=== PATIENT | female | born 1975 | race Caucasian/White ===

== ENCOUNTER 2016-09-21 09:26 | Emergency (ER) | payer MEDICARE, OTHER ==
[~2016-09-21] VITALS: Ht 172.7 cm; Wt 81.8 kg
[~2016-09-21 09:26] MED LIST: ALBU0.086 INH; ARIP1TAB5 PO; VENTAER INH
[2016-09-21 09:27] VITALS: BP 116/67; PULSE 76; RESP 20; TEMP 97; O2SAT 98
[2016-09-21] MEDS ORDERED: FERR1TAB36 PO (09:53)
[2016-09-21] MEDS ORDERED: VENTAER INH (10:34)
--- NOTE | 2016-09-21 10:34 | PD ---
HPI Chief Complaint: Respiratory Symptoms Time Seen by Provider: 10:29 Travel History International Travel<30 days: No Contact w/Intl Traveler<30days: No Traveled to known affect area: No History of Present Illness HPI Patient is a 40-year-old female presenting to emergency department for evaluation of a cough and nasal congestion. Patient states her symptoms have been ongoing for about 2 weeks. She denies any fever, chills, nausea, vomiting , chest pain or shortness of breath. She reports a dry cough. She states that she is out of her albuterol inhaler. Her primary doctor is Dr. Haji, she has not attempted to call him for prescription refill or to be evaluated in the office. She has no other complaints today. PFSH Past Medical History Anemia: Yes Bipolar Disorder: Yes Depression: Yes Cardiovascular Problems: Yes Diminished Hearing: No Endocrine: No Genitourinary: No Immune Disorder: No Musculoskeletal: No Psychiatric: Yes (schizoaffective) Reproductive: Yes (STATES OVARIAN CYSTS) Respiratory: Yes (ASTHMA) Schizophrenia: Yes Seizures: No ?: Not LMP: APPROX. 09/07/16 : 9 Para: 8 Miscarriage: 1 Tubal Ligation: Yes Past Surgical History Section: Yes (X 2 ) Gynecologic Surgery: Yes ( X 2) Other Surgery: Yes (I & D RIGHT LEG) Social History Alcohol Use: No Tobacco Use: No Substance Use: No Allergies-Medications (Allergen,Severity, Reaction): Coded Allergies: Bactrim (Verified Allergy, Severe, chest tightness, 09/21/16) Geodon (Verified Allergy, Severe, chest tightness, 09/21/16) Penicillin (Verified Allergy, Severe, chest tightness, 09/21/16) Sodium Hypochlorite (Unverified Allergy, Severe, 09/21/16) Wasp (Verified Allergy, Severe, chest tightness, 09/21/16) Keflex (Unverified Allergy, Intermediate, Rash, 09/21/16) Tomato (Verified Adverse Reaction, Mild, sores, 09/21/16) *MDRO Multi-Drug Resistant Organism (Unverified Adverse Reaction, Unknown , 09/21/16) ESBL+ E. coli urine 11/19/14. Reported Meds & Prescriptions Reported Meds & Active Scripts Active Proventil Ud 0.083% (2.5 Mg/3 Ml) (Albuterol Sulfate) 2.5 Mg/3 Ml Inha 2.5 Mg INH Q4 Reported Iron (Ferrous Sulfate) 325 Mg Tab Unknown Dose PO DAILY Take Review of Systems Except as stated in HPI: all other systems reviewed are Neg General / Constitutional: No: Fever, Chills HENT: Positive: Rhinitis, Rhinorrhea, Congestion, No: Headaches, Lightheadedness Cardiovascular: No: Chest Pain or Discomfort Respiratory: Positive: Cough, No: Shortness of Breath, Wheezing Gastrointestinal: No: Nausea, Vomiting, Diarrhea, Abdominal Pain Physical Exam Narrative GENERAL: Well-nourished, well-developed patient. SKIN: Warm and dry. HEAD: Normocephalic. EYES: No scleral icterus. No injection or drainage. ENT: Mucosa pink and moist. No erythema or exudates. No uvular edema. No uvular , palatal, or tonsillar deviation. Airway patent. Nasal turbinates appear normal without nasal blood, purulent drainage or septal hematoma. Posterior pharynx is cobblestone appearance. NECK: Supple, trachea midline. No JVD or lymphadenopathy. CARDIOVASCULAR: Regular rate and rhythm without murmurs, gallops, or rubs. RESPIRATORY: Breath sounds equal bilaterally. No accessory muscle use. No wheezing, rhonchi, rales noted. GASTROINTESTINAL: Abdomen soft, non-tender, nondistended. MUSCULOSKELETAL: No cyanosis, or edema. BACK: Nontender without obvious deformity. No CVA tenderness. Data Data Last Documented VS Vital Signs Date Time Temp Pulse Resp B/P Pulse Ox O2 Delivery O2 Flow Rate FiO2 09/21/16 09:27 97.0 76 20 116/67 98 Room Air [facility] Medical Decision Making Medical Screen Exam Complete: Yes Emergency Medical Condition: Yes Interpretation(s) Vital Signs Date Time Temp Pulse Resp B/P Pulse Ox O2 Delivery O2 Flow Rate FiO2 09/21/16 09:27 97.0 76 20 116/67 98 Room Air Differential Diagnosis Asthma exacerbation versus bronchitis versus pneumonia versus postnasal drip Narrative Course Patient is a 40-year-old female presenting to the emergency room evaluation of cough and nasal congestion. Lungs are clear to auscultation bilaterally, there are no wheezes, rhonchi, rales noted. Patient is afebrile, her vital signs are stable. Cough is likely secondary to postnasal drip due to nasal congestion. Patient will be provided with a prescription refill for her albuterol inhaler, she was encouraged to obtain [id number] nasal decongestant and use as directed and as needed. She was encouraged to follow-up with her primary doctor. Additionally patient can come back to the emergency department for any new or worsening symptoms. Patient verbalized understanding of these instructions. Patient is stable for discharge. Diagnosis Primary Impression: Upper respiratory infection Qualified Code: J06.9 - Upper respiratory tract infection, unspecified type Additional Impression: Encounter for medication refill Referrals: Primary Care Physician Patient Instructions: Asthma (ED), General Instructions, Upper Respiratory Infection (ED) Additional Instructions: Follow-up with her primary doctor Return to emergency department for any new or worsening symptoms [id number] nasal decongestant and use as directed and as needed Med/Other Pt SpecificInfo: Prescription(s) given Scripts Albuterol 18 GM Inh (Ventolin Hfa 18 GM Inh)90 Mcg/Act Aer2 Puff INH Q4-6H PRN ( SHORTNESS OF BREATH) #1 INHALER Ref 0 Prov:April Recio 09/21/16 Disposition: 01 DISCHARGE HOME Condition: Stable April Recio Sep 21, 2016 10:34
== END 2016-09-21 10:46 | disposition home or self-care (01) ==
LOC: NEPB 09:26
DX: J06.9 Acute upper respiratory infection, unspecified (principal); Z76.0 Encounter for issue of repeat prescription
CPT/HCPCS: 99283

== ENCOUNTER 2017-01-21 20:38 | Emergency (ER) | payer OTHER ==
[~2017-01-21] VITALS: Ht 172.7 cm; Wt 100.0 kg
[~2017-01-21 20:38] MED LIST changes: -ARIP1TAB5 PO; +FERR1TAB36 PO
[2017-01-21 20:40] VITALS: BP 132/70; PULSE 107; RESP 16; TEMP 98.2; O2SAT 100
[2017-01-21] MEDS ORDERED: ARIP1TAB7 PO (20:47)
--- NOTE | 2017-01-21 21:17 | PD ---
HPI . Epigastric abdominal pain Chief Complaint: Abdominal Pain Time Seen by Provider: 21:16 Travel History International Travel<30 days: No Contact w/Intl Traveler<30days: No Traveled to known affect area: No History of Present Illness HPI 41-year-old female with no significant past medical history other than iron deficiency anemia and bipolar disorder here with complaints of epigastric abdominal pain with diarrhea for one day. Patient says that she suddenly noticed some pain in her epigastric area and also noticed that it was distended. She reiterates that she's had her tubes tied and burned and that there should be no chance of . She tells me the pain is intermittent and at its peak is 6/10 without any radiation elsewhere. She does not presently have the pain. She denies any nausea or vomiting. She denies a constipation. She had 3 bowel movements today and tells me that they were semi- watery. She also reports some dysuria and toes me she's been urinating more than usual. This has been going on for the past 2 days. She is accompanied by her significant other. PFSH Past Medical History Anemia: Yes Bipolar Disorder: Yes Depression: Yes Cardiovascular Problems: Yes Diminished Hearing: No Endocrine: No Genitourinary: No Immune Disorder: No Musculoskeletal: No Psychiatric: Yes (schizoaffective) Reproductive: Yes (STATES OVARIAN CYSTS) Respiratory: Yes (ASTHMA) Schizophrenia: Yes Seizures: No ?: Not LMP: 01/10/17 : 9 Para: 8 Miscarriage: 1 Tubal Ligation: Yes Past Surgical History Section: Yes (X 2 ) Gynecologic Surgery: Yes ( X 2) Other Surgery: Yes (I & D RIGHT LEG) Social History Alcohol Use: No Tobacco Use: No Substance Use: No Allergies-Medications (Allergen,Severity, Reaction): Coded Allergies: Bactrim (Verified Allergy, Severe, chest tightness, 01/21/17) Geodon (Verified Allergy, Severe, chest tightness, 01/21/17) Penicillin (Verified Allergy, Severe, chest tightness, 01/21/17) Sodium Hypochlorite (Unverified Allergy, Severe, 01/21/17) Wasp (Verified Allergy, Severe, chest tightness, 01/21/17) Keflex (Unverified Allergy, Intermediate, Rash, 01/21/17) Tomato (Verified Adverse Reaction, Mild, sores, 01/21/17) *MDRO Multi-Drug Resistant Organism (Unverified Adverse Reaction, Unknown , 01/21/17) ESBL+ E. coli urine 11/19/14. Reported Meds & Prescriptions Reported Meds & Active Scripts Active Omeprazole 40 Mg Cap 40 Mg PO DAILY Reported Ferrous Sulfate DR (Ferrous Sulfate) 324 Mg Tabdr 324 Mg PO DAILY Abilify (Aripiprazole) 20 Mg Tab 20 Mg PO DAILY Review of Systems General / Constitutional: No: Fever Eyes: No: Visual changes HENT: No: Headaches Cardiovascular: No: Chest Pain or Discomfort Respiratory: No: Shortness of Breath Gastrointestinal: Positive: Diarrhea, Abdominal Pain, Other (distention ) Genitourinary: No: Dysuria Musculoskeletal: No: Pain Skin: No Rash Neurologic: No: Weakness Psychiatric: No: Depression Endocrine: No: Polydipsia Hematologic/Lymphatic: No: Easy Bruising Physical Exam Narrative GENERAL: AAO x 3, no acute distress, Well-nourished, well-developed patient. SKIN: Warm and dry. No visible rashes or bruising. HEAD: Normocephalic and atraumatic. EYES: No scleral icterus. No injection or drainage. EOM intact, PERRLA ENT: No nasal drainage noted. Mucous membranes pink. Airway patent. NECK: Supple, trachea midline. No JVD. CARDIOVASCULAR: Regular rate and rhythm without murmurs, gallops, or rubs. RESPIRATORY: Breath sounds equal bilaterally. No accessory muscle use. No rhonchi or rales. GASTROINTESTINAL: Abdomen soft, but distended. Normoactive bowel sounds. No rebound or guarding. There is tenderness in the epigastric area as well as the left upper quadrant. There is some tenderness in the right lower quadrant and suprapubic area. No flank pain present EXTREMITIES: No cyanosis or edema. Nontender upper and lower extremities. BACK: Nontender without obvious deformity. No CVA tenderness. NEURO: CN II-12 intact, sample tester grinder strength normal b/l, UE and LE 5/5, no focal deficits PSYCH: AAO x 3, normal affect. Data Data Last Documented VS Vital Signs Date Time Temp Pulse Resp B/P Pulse Ox O2 Delivery O2 Flow Rate FiO2 01/21/17 21:33 91 16 121/67 98 Room Air 01/21/17 20:40 98.2 Orders Complete Blood Count With Diff (01/21/17 21:17) Comprehensive Metabolic Panel (01/21/17 21:17) Lipase (01/21/17 21:17) Urinalysis - C+S If Indicated (01/21/17 21:17) Ct Abd/Pel W Iv Contrast(Rout) (01/21/17 21:17) Iv Access Insert/Monitor (01/21/17 21:17) Ecg Monitoring (01/21/17 21:17) Oximetry (01/21/17 21:17) NPO (01/21/17 21:17) Ed Urine Pregnancytest Poc (01/21/17 21:17) Potassium Chloride (Kcl) (01/21/17 23:30) Iohexol 350 Inj (Omnipaque 350 Inj) (01/21/17 23:19) Potassium Chloride Eff (K-Lyte Cl Eff) (01/22/17 00:00) Labs Laboratory Tests Test 01/21/17 01/21/17 21:12 21:31 Urine Color YELLOW Urine Turbidity CLOUDY Urine pH 5.5 Urine Specific Sayre 1.036 Urine Protein 30 mg/dL Urine Glucose (UA) NEG mg/dL Urine Ketones TRACE mg/dL Urine Occult Blood NEG Urine Nitrite NEG Urine Bilirubin NEG Urine Urobilinogen 2.0 MG/DL Urine Leukocyte Esterase MOD Urine RBC LESS THAN 1 /hpf Urine WBC 7 /hpf Urine Squamous Epithelial 7 /hpf Cells Urine Amorphous Sediment MOD Urine Mucus MANY /lpf Microscopic Urinalysis Comment CULT NOT INDICATED White Blood Count 8.3 TH/MM3 Red Blood Count 4.18 MIL/MM3 Hemoglobin 7.6 GM/DL Hematocrit 25.1 % Mean Corpuscular Volume 60.1 FL Mean Corpuscular Hemoglobin 18.1 PG Mean Corpuscular Hemoglobin 30.1 % Concent Red Cell Distribution Width 21.2 % Platelet Count 219 TH/MM3 Mean Platelet Volume 9.0 FL Neutrophils (%) (Auto) 68.6 % Lymphocytes (%) (Auto) 23.6 % Monocytes (%) (Auto) 6.8 % Eosinophils (%) (Auto) 0.6 % Basophils (%) (Auto) 0.4 % Neutrophils # (Auto) 5.7 TH/MM3 Lymphocytes # (Auto) 2.0 TH/MM3 Monocytes # (Auto) 0.6 TH/MM3 Eosinophils # (Auto) 0.1 TH/MM3 Basophils # (Auto) 0.0 TH/MM3 CBC Comment DIFF FINAL Differential Comment Sodium Level 141 MEQ/L Potassium Level 3.0 MEQ/L Chloride Level 106 MEQ/L Carbon Dioxide Level 25.3 MEQ/L Anion Gap 10 MEQ/L Blood Urea Nitrogen 8 MG/DL Creatinine 0.87 MG/DL Estimat Glomerular Filtration 72 ML/MIN Rate Random Glucose 108 MG/DL Calcium Level 8.3 MG/DL Total Bilirubin 0.3 MG/DL Aspartate Amino Transf 17 U/L (AST/SGOT) Alanine Aminotransferase 27 U/L (ALT/SGPT) Alkaline Phosphatase 114 U/L Total Protein 7.3 GM/DL Albumin 3.4 GM/DL Lipase 117 U/L [facility] Medical Decision Making Medical Screen Exam Complete: Yes Emergency Medical Condition: Yes Medical Record Reviewed: Yes Differential Diagnosis Colitis, diverticulitis, peptic ulcer disease, ectopic , constipation, urinary tract infection Narrative Course 41-year-old female here with complaints of epigastric abdominal pain, diarrhea and increased urinary frequency with dysuria. IV access, labs, CT of the abdomen and pelvis have been ordered. urine test was also requested. She rates her pain a 6 out of 10, but at this moment tells me she does not have any pain. I offered pain medications and she has declined. Case has been discussed with Dr. Hooks, pending workup he will determine her disposition. Scripts Omeprazole 40 Mg Cap40 Mg PO DAILY #30 CAP Ref 0 Prov:Alvarado Hooks MD 01/22/17 Condition: Stable Deborah Mcdonald Jan 21, 2017 21:16
[2017-01-21 21:33] VITALS: BP 121/67; PULSE 91; RESP 16; O2SAT 98
[2017-01-21] MEDS ORDERED: FERR324T4 PO (21:37)
[2017-01-21 21:59] LABS: AUTOMATED NEUTROPHIL # 5.7 TH/MM3 (1.8-7.7); BASOPHIL % 0.4 % (0.0-2.0); EOSINOPHIL # 0.1 TH/MM3 (0-0.4); EOSINOPHIL % 0.6 % (0.0-4.0); HEMATOCRIT 25.1 % (35.0-46.0); HEMO FLAGS DIFF FINAL; LYMPH % 23.6 % (9.0-44.0); MEAN CELL VOLUME 60.1 FL (80.0-100.0); MEAN CORPUSCULAR HEMOGLOBIN 18.1 PG (27.0-34.0); MEAN CORPUSCULAR HGB CONC 30.1 % (32.0-36.0); MONO % 6.8 % (0.0-8.0); NEUT % 68.6 % (16.0-70.0); PLATELET COUNT 219 TH/MM3 (150-450); RED BLOOD COUNT 4.18 MIL/MM3 (4.00-5.30); RED CELL DISTRIBUTION WIDTH 21.2 % (11.6-17.2); WHITE BLOOD COUNT 8.3 TH/MM3 (4.0-11.0)
[2017-01-21 22:00] LABS: BLOOD, URINE NEG (NEG); COMMENT (UR) CULT NOT INDICATED; CULTURE IF INDICATED CULT NOT INDICATED; GLUCOSE,URINE NEG (NEG); KETONE, URINE TRACE mg/dL (NEG); MUCUS URINE MANY /lpf (OCC); NITRITE,URINE NEG (NEG); PH, URINE 5.5 (5.0-8.5); SQUAMOUS EPITHELIAL CELL URINE 7 /hpf (0-5); URINE COLOR YELLOW (YELLW/STRAW)
[2017-01-21 22:23] LABS: ALT (GPT) 27 U/L (10-53); ANION GAP 10 MEQ/L (5-15); AST (GOT) 17 U/L (15-37); BICARBONATE 25.3 MEQ/L (21.0-32.0); BLOOD UREA NITROGEN 8 MG/DL (7-18); CHLORIDE 106 MEQ/L (98-107); GLOMERULAR FILTRATION RATE 72 ML/MIN (>89); SODIUM (NA) 141 MEQ/L (136-145)
[2017-01-21 22:26] LABS: ALKALINE PHOSPHATASE 114 U/L (45-117); TOTAL BILIRUBIN ADULT 0.3 MG/DL (0.2-1.0)
--- NOTE | 2017-01-21 23:18 | PD ---
Physical Exam Date Seen by Provider: Jan 21, 2017 Time Seen by Provider: 23:16 Narrative The patient is a 41-year-old female was initially evaluated by the mid-level provider. Please refer to the initial history, physical, diagnostic evaluation , treatment modality plan. The patient was signed out [address] of the abdomen and pelvis pending. Data Data Last Documented VS Vital Signs Date Time Temp Pulse Resp B/P Pulse Ox O2 Delivery O2 Flow Rate FiO2 01/21/17 21:33 91 16 121/67 98 Room Air 01/21/17 20:40 98.2 Orders Complete Blood Count With Diff (01/21/17 21:17) Comprehensive Metabolic Panel (01/21/17 21:17) Lipase (01/21/17 21:17) Urinalysis - C+S If Indicated (01/21/17 21:17) Ct Abd/Pel W Iv Contrast(Rout) (01/21/17 21:17) Iv Access Insert/Monitor (01/21/17 21:17) Ecg Monitoring (01/21/17 21:17) Oximetry (01/21/17 21:17) NPO (01/21/17 21:17) Ed Urine Pregnancytest Poc (01/21/17 21:17) Potassium Chloride (Kcl) (01/21/17 23:30) Iohexol 350 Inj (Omnipaque 350 Inj) (01/21/17 23:19) Potassium Chloride Eff (K-Lyte Cl Eff) (01/22/17 00:00) Labs Laboratory Tests Test 01/21/17 01/21/17 21:12 21:31 Urine Color YELLOW Urine Turbidity CLOUDY Urine pH 5.5 Urine Specific Rose 1.036 Urine Protein 30 mg/dL Urine Glucose (UA) NEG mg/dL Urine Ketones TRACE mg/dL Urine Occult Blood NEG Urine Nitrite NEG Urine Bilirubin NEG Urine Urobilinogen 2.0 MG/DL Urine Leukocyte Esterase MOD Urine RBC LESS THAN 1 /hpf Urine WBC 7 /hpf Urine Squamous Epithelial 7 /hpf Cells Urine Amorphous Sediment MOD Urine Mucus MANY /lpf Microscopic Urinalysis Comment CULT NOT INDICATED White Blood Count 8.3 TH/MM3 Red Blood Count 4.18 MIL/MM3 Hemoglobin 7.6 GM/DL Hematocrit 25.1 % Mean Corpuscular Volume 60.1 FL Mean Corpuscular Hemoglobin 18.1 PG Mean Corpuscular Hemoglobin 30.1 % Concent Red Cell Distribution Width 21.2 % Platelet Count 219 TH/MM3 Mean Platelet Volume 9.0 FL Neutrophils (%) (Auto) 68.6 % Lymphocytes (%) (Auto) 23.6 % Monocytes (%) (Auto) 6.8 % Eosinophils (%) (Auto) 0.6 % Basophils (%) (Auto) 0.4 % Neutrophils # (Auto) 5.7 TH/MM3 Lymphocytes # (Auto) 2.0 TH/MM3 Monocytes # (Auto) 0.6 TH/MM3 Eosinophils # (Auto) 0.1 TH/MM3 Basophils # (Auto) 0.0 TH/MM3 CBC Comment DIFF FINAL Differential Comment Sodium Level 141 MEQ/L Potassium Level 3.0 MEQ/L Chloride Level 106 MEQ/L Carbon Dioxide Level 25.3 MEQ/L Anion Gap 10 MEQ/L Blood Urea Nitrogen 8 MG/DL Creatinine 0.87 MG/DL Estimat Glomerular Filtration 72 ML/MIN Rate Random Glucose 108 MG/DL Calcium Level 8.3 MG/DL Total Bilirubin 0.3 MG/DL Aspartate Amino Transf 17 U/L (AST/SGOT) Alanine Aminotransferase 27 U/L (ALT/SGPT) Alkaline Phosphatase 114 U/L Total Protein 7.3 GM/DL Albumin 3.4 GM/DL Lipase 117 U/L [facility] Medical Record Reviewed: Yes Supervised Visit with JADYN: Yes Interpretation(s) Laboratory Tests Test 01/21/17 01/21/17 21:12 21:31 Urine Color YELLOW Urine Turbidity CLOUDY Urine pH 5.5 Urine Specific Rose 1.036 Urine Protein 30 mg/dL Urine Glucose (UA) NEG mg/dL Urine Ketones TRACE mg/dL Urine Occult Blood NEG Urine Nitrite NEG Urine Bilirubin NEG Urine Urobilinogen 2.0 MG/DL Urine Leukocyte Esterase MOD Urine RBC LESS THAN 1 /hpf Urine WBC 7 /hpf Urine Squamous Epithelial 7 /hpf Cells Urine Amorphous Sediment MOD Urine Mucus MANY /lpf Microscopic Urinalysis Comment CULT NOT INDICATED White Blood Count 8.3 TH/MM3 Red Blood Count 4.18 MIL/MM3 Hemoglobin 7.6 GM/DL Hematocrit 25.1 % Mean Corpuscular Volume 60.1 FL Mean Corpuscular Hemoglobin 18.1 PG Mean Corpuscular Hemoglobin 30.1 % Concent Red Cell Distribution Width 21.2 % Platelet Count 219 TH/MM3 Mean Platelet Volume 9.0 FL Neutrophils (%) (Auto) 68.6 % Lymphocytes (%) (Auto) 23.6 % Monocytes (%) (Auto) 6.8 % Eosinophils (%) (Auto) 0.6 % Basophils (%) (Auto) 0.4 % Neutrophils # (Auto) 5.7 TH/MM3 Lymphocytes # (Auto) 2.0 TH/MM3 Monocytes # (Auto) 0.6 TH/MM3 Eosinophils # (Auto) 0.1 TH/MM3 Basophils # (Auto) 0.0 TH/MM3 CBC Comment DIFF FINAL Differential Comment Sodium Level 141 MEQ/L Potassium Level 3.0 MEQ/L Chloride Level 106 MEQ/L Carbon Dioxide Level 25.3 MEQ/L Anion Gap 10 MEQ/L Blood Urea Nitrogen 8 MG/DL Creatinine 0.87 MG/DL Estimat Glomerular Filtration 72 ML/MIN Rate Random Glucose 108 MG/DL Calcium Level 8.3 MG/DL Total Bilirubin 0.3 MG/DL Aspartate Amino Transf 17 U/L (AST/SGOT) Alanine Aminotransferase 27 U/L (ALT/SGPT) Alkaline Phosphatase 114 U/L Total Protein 7.3 GM/DL Albumin 3.4 GM/DL Lipase 117 U/L Differential Diagnosis Differential diagnoses includes gastritis, peptic ulcer disease, biliary colic, choledocholithiasis, pancreatitis, abdominal pain NOS. Narrative Course I, Dr. Hooks, have reviewed the advance practice practitioner's documentation and am in agreement, met with the patient face to face, made the diagnosis, and the medical decision making was done by me. *My assessment and Findings: The patient is a 41-year-old female who is initially evaluated by the mid-level provider. The patient playing of epigastric abdominal pain, however, initially said it was her ovarian cyst causing pain. IV was established, labs are drawn and sent, and the patient is placed on cardiac telemetry monitoring and continuous pulse oximetry monitoring. Patient's laboratory evaluation reveals a hemoglobin 7.5 with an MCV of 60, most likely related iron deficiency anemia. I reviewed the EMR she does have a history of anemia ranges from 79. UA was unremarkable. Lipase and LFTs are unremarkable. CT the abdomen and pelvis was ordered by the mid-level provider. The patient's potassium is low at 3.0, therefore, was replaced orally. The patient states she has been noncompliant with her iron supplementation, she is advised to take her iron as directed for her iron deficiency anemia. She will be placed on Prilosec, is advised to follow-up with her primary physician and shift coordinator. Return if symptoms worsen or progress. Diagnosis Primary Impression: Gastritis Qualified Code: K29.00 - Acute gastritis, presence of bleeding unspecified, unspecified gastritis type Additional Impressions: Epigastric abdominal pain Iron deficiency anemia Qualified Code: D50.9 - Iron deficiency anemia, unspecified iron deficiency anemia type Patient Instructions: General Instructions Additional Instruction: Please provide a patient a copy of her CT results and lab results at discharge. Taking her iron as previously directed. I'll a second daily as directed. Return if symptoms worsen or progress. Med/Other Pt SpecificInfo: Prescription(s) given Scripts Omeprazole 40 Mg Cap40 Mg PO DAILY #30 CAP Ref 0 Prov:Alvarado Hooks MD 01/22/17 Disposition: 01 DISCHARGE HOME Condition: Stable Alvarado Hooks MD Jan 21, 2017 23:18
[2017-01-21] MEDS ORDERED: IOHEXOL 350 MG/ML 10 ML VIAL (for RAD DIAG) IV ONE (23:19)
[2017-01-21] MEDS: POTASSIUM CHLORIDE 20 MEQ CONTROLLED RELEASE TAB PO ONE ×2 (23:30→23:42)
--- NOTE | 2017-01-21 23:31 | RADRPT ---
EXAM DATE/TIME: 01/21/2017 23:17 [facility] COMPARISON: No previous studies available for comparison. INDICATIONS : Low abdominal pain. IV CONTRAST: 91 cc Omnipaque 350 (iohexol) IV ORAL CONTRAST: No oral contrast ingested. RADIATION DOSE: 15.87 CTDIvol (mGy) MEDICAL HISTORY : Cardiovascular disease. ovarian cysts SURGICAL HISTORY : Tubal ligation. section. ENCOUNTER: Initial ACUITY: 1 day PAIN SCALE: 6/10 LOCATION: abdomen TECHNIQUE: Volumetric scanning of the abdomen and pelvis was performed. Using automated exposure control and ad justment of the mA and/or kV according to patient size, radiation dose was kept as low as reasonably achievable to obtain optimal diagnostic quality images. DICOM format image data is available electro nically for review and comparison. FINDINGS: LOWER LUNGS: The visualized lower lungs are clear. LIVER: Homogeneous density without lesion. There is no dilation of the biliary tree. No calcified gallston es. Nonspecific low-density. SPLEEN: Normal size without lesion. PANCREAS: Within normal limits. KIDNEYS: Normal in size and shape. There is no mass, stone or hydronephrosis. ADRENAL GLANDS: Within normal limits. VASCULAR: There is no aortic aneurysm. BOWEL/MESENTERY: The small bowel, and colon demonstrate no acute abnormality. Small hiatal hernia. There is no free in traperitoneal air or fluid. Normal appendix. ABDOMINAL WALL: Within normal limits. RETROPERITONEUM: There is no lymphadenopathy. BLADDER: No wall thickening or mass. REPRODUCTIVE: Ovarian cyst measuring 3.7 cm seen in the left ovary. INGUINAL: There is no lymphadenopathy or hernia. MUSCULOSKELETAL: Within normal limits for patient age. CONCLUSION: 1. Small hiatal hernia. 2. Nonspecific hepatic hypodensities, likely benign. 3. No acute inflammatory process. 4. Left ovarian cyst. Catrachito Alfaro MD on January 21, 2017 at 23:26 Board Certified Radiologist. This report was verified electronically.
[2017-01-22] MEDS ORDERED: POTASSIUM CHLORIDE 25 MEQ EFFERVESCENT TAB PO ONE
[2017-01-22] MEDS ORDERED: OMEP40CA2 PO (00:02)
== END 2017-01-22 00:41 | disposition home or self-care (01) ==
LOC: NEPC 20:38
DX: K29.00 Acute gastritis without bleeding (principal); R10.13 Epigastric pain; D50.9 Iron deficiency anemia, unspecified; R19.7 Diarrhea, unspecified; R30.0 Dysuria; R35.0 Frequency of micturition; D64.9 Anemia, unspecified; F31.9 Bipolar disorder, unspecified; F20.9 Schizophrenia, unspecified
CPT/HCPCS: 74177; 80053; 81001; 83690; 84703; 85025; 99285; Q9967